=== PATIENT | female | born 1980 | race Caucasian/White ===

== ENCOUNTER 2020-06-23 15:44 | Inpatient (IN) | payer OTHER ==
[2020-06-23 16:28] VITALS: BMI 23.3
--- NOTE | 2020-06-23 16:36 | BHS.RME ---
Substance Use & Tx History - Substance Use History Alcohol Substance amount: 4 pints vodka + 4 [place] Frequency of use: Daily Substance route: Oral Date of Last Use: 06/23/20 ( 10 a.m.) Cocaine- Powder Substance amount: 1-2 lines Frequency of use: Less than 3 times per week Substance route: Inhalation (ex: sniffing or snorting) Date of Last Use: 06/22/20 Nicotine Substance amount: 10-20 Frequency of use: Daily Substance route: Smoking Date of Last Use: 06/23/20 Physical/Psych/Mental Status - Behavior Eye Contact: Normal - Cooperativeness Cooperativeness: Cooperative - Thinking Thought Processes: Goal Directed Thought content: Future oriented - Physical Health Problems Is patient presently having any pain?: No Does patient presently have any injuries (include location): No Does patient currently have a fever: No Is patient : No CIWA Nausea/Vomitin-No Nausea/No Vomiting Muscle Tremors: 4-Moderate,w/Arms Extend Anxiety: 3 Agitation: 3 Paroxysmal Sweats: 3 (Increased facial moisture) Orientation: 0-Oriented Tacttile Disturbances: 1-Very Mild Itch/Numbness Auditory Disturbances: 0-None Visual Disturbances: 0-None Headache: 3-Moderate (Sharp/throbbing headache, frontal + anabaptism areas "6") CIWA-Ar Total Score: 17
--- NOTE | 2020-06-23 16:52 | HP ---
CIWA Score Nausea/Vomitin-No Nausea/No Vomiting Muscle Tremors: 4-Moderate,w/Arms Extend Anxiety: 3 Agitation: 3 Paroxysmal Sweats: 3 (Increased facial moisture) Orientation: 0-Oriented Tacttile Disturbances: 1-Very Mild Itch/Numbness Auditory Disturbances: 0-None Visual Disturbances: 0-None Headache: 3-Moderate (Sharp/throbbing headache, frontal + rastafarian areas "6") CIWA-Ar Total Score: 17 - Admission Criteria [facility]AS Guidelines: Admission for Medically Managed Detox: Requires at least one of the followin. CIWA greater than 12 2. Seizures within the past 24 hours 3. Delirium tremens within the past 24 hours 4. Hallucinations within the past 24 hours 5. Acute intervention needed for co occurring medical disorder 6. Acute intervention needed for co occurring psychiatric disorder 7. Severe withdrawal that cannot be handled at a lower level of care (continued vomiting, continued diarrhea, abnormal vital signs) requiring intravenous medication and/or fluids 8. Admission ROS [facility] Chief Complaint: alcohol withdrawls symptoms Allergies/Adverse Reactions: Allergies Allergy/AdvReac Type Severity Reaction Status Date / Time No Known Allergies Allergy Verified 06/23/20 16:57 History of Present Illness: Patient is a 40 y/o female with HTN who presents for alcohol detox. Patient started drinking at age 12. Patient drinks everyday, and drinks 4.5 pints vodka, 12-14 four lokos. Patient has had a seizure from stopping drinking. 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 She cannot sleep a whole night without needing alcohol. Patient has tried rehab in the past, patient has not been able to maintain sobriety. last drink was earlier today. Patient smokes crack on occasion. Recently smokes every day but not "a lot" everyday. First time smoking crack was 27, stopped for a long time but just started again a couple weeks ago. Smokes 1/2- 1 ppd cigarettes. Started smoking at age 16. Substance Use & Tx History - Substance Use History Alcohol Substance amount: 4 pints vodka + 4 [place] Frequency of use: Daily Substance route: Oral Date of Last Use: 06/23/20 ( 10 a.m.) Cocaine- Powder Substance amount: 1-2 lines Frequency of use: Less than 3 times per week Substance route: Inhalation (ex: sniffing or snorting) Date of Last Use: 06/22/20 Nicotine Substance amount: 10-20 Frequency of use: Daily Substance route: Smoking Date of Last Use: 06/23/20 PMHX: HTN PSGHX: left knee, 2 circlages, laproscopies, tubal ligation, oral surgery, R wrist Psych: PTSD, depression, anxiety, panic disorder Social: homeless in [place], no occupation legal: none Patient meets criteria for inpatient alcohol detox, CIWA elevated and bad social status. - Ebola screening Have you traveled outside of the country in the last 21 days: No Have you had contact with anyone from an Ebola affected area: No Have you been sick,other than usual withdrawal symptoms: No Do you have a fever: No - Review of Systems Constitutional: Other (denies: fever, chills) EENT: denies: Blurred Vision, Double Vision, Ear Discharge, Tinnitus Respiratory: denies: Cough, Shortness of Breath, Wheezing Cardiac: denies: Chest Pain, Chest Tightness GI: denies: Constipated, Diarrhea, Nausea, Vomiting : denies: Burning Musculoskeletal: denies: Back Pain, Muscle Pain Integumentary: denies: Bruising Neuro: denies: Headache, Numbness, Tingling, Dizziness Endocrine: denies: Unexplained Weight Loss Hematology: denies: Easy Bleeding Psychiatric: reports: Anxious. denies: Agitated, Depressed Patient History - Patient Medical History Hx Anemia: No Hx Asthma: No Hx Chronic Obstructive Pulmonary Disease (COPD): No Hx Cancer: No Hx Cardiac Disorders: No Hx Congestive Heart Failure: No Hx Hypertension: Yes Hx Hypercholesterolemia: No Hx Pacemaker: No HX Cerebrovascular Accident: No Hx Seizures: No Hx Dementia: No Hx Diabetes: No Hx Gastrointestinal Disorders: No Hx Liver Disease: No Hx Genitourinary Disorders: No Hx Sexually Transmitted Disorders: No Hx Renal Disease (ESRD): No Hx Thyroid Disease: No Hx Human Immunodeficiency Virus (HIV): No Hx Hepatitis C: No Hx Depression: No Hx Suicide Attempt: No Hx Bipolar Disorder: No Hx Schizophrenia: No - Patient Surgical History Past Surgical History: Yes Hx Neurologic Surgery: No Hx Cataract Extraction: No Hx Cardiac Surgery: No Hx Breast Surgery: No Hx Breast Biopsy: No Hx Abdominal Surgery: Yes Hx Appendectomy: No Hx Cholecystectomy: No Hx Genitourinary Surgery: No Hx Section: No Hx Orthopedic Surgery: Yes Hx Hysterectomy: No Anesthesia Reaction: No - PPD History Previous Implant?: Yes Documented Results: Negative w/o proof - Reproductive History Patient is a Female of Child Bearing Age (11 -55 yrs old): Yes Last Menstrual Period: 06/23/20 - Smoking Cessation Smoking history: Current every day smoker Aproximately how many cigarettes per day: 20 Initiated information on smoking cessation: Yes 'Breaking Loose' booklet given: 06/23/20 - Substance & Tx. History Hx Alcohol Use: Yes Hx Substance Use: Yes (crack) Admission Physical Exam [facility] - Vital Signs Vital Signs: Vital Signs - 24 hr 06/23/20 06/23/20 16:27 16:30 Temperature 97.6 F 97.6 F Pulse Rate 78 78 Respiratory 18 18 Rate Blood Pressure 159/106 H 159/106 H - Physical General Appearance: Yes: No Apparent Distress, Appropriately Dressed HEENTM: Yes: Hearing grossly Normal Respiratory: Yes: Normal Breath Sounds, No Respiratory Distress, No Accessory Muscle Use Neck: Yes: Within Normal Limits Cardiology: Yes: Regular Rhythm, Regular Rate, S1, S2 Abdominal: Yes: Non Tender, Flat, Soft Back: Yes: Within Normal Limits, Normal Inspection Musculoskeletal: Yes: full range of Motion, Gait Steady Extremities: Yes: Normal Range of Motion. No: Pedal Edema Neurological: Yes: Fully Oriented, Normal Response Integumentary: Yes: Dry - Diagnostic (1) Alcohol dependence with withdrawal Current Visit: Yes Status: Acute (2) Nicotine addiction Current Visit: Yes Status: Acute (3) Hypertension Current Visit: Yes Status: Acute Cleared for Admission [facility] - Detox or Rehab [facility] Level of Care: Medically Managed Detox Regimen/Protocol: Librium Claeared for Rehab Admission: No Breathalyzer - Breathalyzer Breathalyzer: 0 Vital Signs - Vital Signs Vital signs refused: No Temperature: 97.6 F Temperature source: Oral Pulse Rate: 78 Respiratory Rate: 18 Blood Pressure: 159/106 - Height Height: 5 ft 4 in - Weight Weight: 61.689 kg - BMI Body Mass Index (BMI): 23.3 Urine Drug Screen - Test Device Lot number: [id number] Expiration date: 01/15/22 - Control Is test valid?: Yes - Results Drug screen NEGATIVE: No Urine drug screen results: SOLANGE-Cocaine Inpatient Rehab Admission - Rehab Decision to Admit Inpatient rehab admission?: No
[2020-06-23] MEDS ORDERED: BISMUTH SUBSALICYLATE 524 MG/30 ML UD PO PRN (16:58)
[2020-06-23] MEDS ORDERED: MAGNESIUM CITRATE 300 ML BOTTLE PO PRN (16:58)
[2020-06-23] MEDS ORDERED: NICOTINE POLACRILEX 2 MG GUM BUC PRN (16:58)
[2020-06-23] MEDS ORDERED: MAGNESIUM HYDROX 2400MG/30ML ORAL SUSPENSION 30 ML CUP PO PRN (16:58)
[2020-06-23] MEDS ORDERED: IBUPROFEN 400 MG TABLET (FP) PO PRN (16:58)
[2020-06-23] MEDS ORDERED: MENTHOL/PHENOL 1 EACH UD MM PRN (16:58)
[2020-06-23] MEDS ORDERED: ACETAMINOPHEN 325 MG TABLET (FP) PO PRN ×2 (16:58)
[2020-06-23] MEDS ORDERED: ONDANSETRON *ODT* 4 MG TABLET SL PRN (16:58)
[2020-06-23] MEDS ORDERED: MAG HYDROX/AL HYDROX/SIMETH 30 ML UNIT-DOSE CUP PO PRN (16:58)
[2020-06-23] MEDS ORDERED: chlordiazePOXIDE HCL 25 MG CAPSULE PO PRN (16:58)
[2020-06-23] MEDS: PRENATAL VITAMINS W/ FOLIC ACID TABLET (FP) PO SCH (18:35)
[2020-06-23] MEDS: hydrOXYzine PAMOATE 25 MG CAPSULE (FP) PO SCH ×2 (18:36→22:39)
[2020-06-23] MEDS: LISINOPRIL 10 MG TABLET (FP) PO SCH (18:36)
[2020-06-23] MEDS: amLODIPine BESYLATE 5 MG TABLET (FP) PO SCH (18:36)
[2020-06-23] MEDS: HYDROCHLOROTHIAZIDE 25 MG TABLET (FP) PO SCH (18:36)
[2020-06-23] MEDS: chlordiazePOXIDE HCL 25 MG CAPSULE PO SCH ×2 (18:36→22:38)
[2020-06-23] MEDS: NICOTINE 21 MG/24 HOURS TOPICAL PATCH TD SCH (18:40)
[2020-06-23] MEDS: MELATONIN 5 MG TABLETS PO SCH (22:38)
[2020-06-23] MEDS: THIAMINE HCL 100 MG TABLET (FP) PO SCH (22:39)
[2020-06-24] MEDS: chlordiazePOXIDE HCL 25 MG CAPSULE PO SCH ×4 (05:51→22:21)
[2020-06-24] MEDS: hydrOXYzine PAMOATE 25 MG CAPSULE (FP) PO SCH ×5 (05:51→22:21)
--- NOTE | 2020-06-24 09:24 | PN ---
S CIWA - CIWA Score Nausea/Vomitin-Mild Nausea/No Vomiting Muscle Tremors: 3 Anxiety: 3 Agitation: 1-Slight > Activity Paroxysmal Sweats: 2 Orientation: 0-Oriented Tacttile Disturbances: 0-None Auditory Disturbances: 0-None Visual Disturbances: 2-Mild Sensitivity Headache: 0-None Present CIWA-Ar Total Score: 12 BHS Progress Note (SOAP) Subjective: 40 years old female was admitted on 06/23/20 for alcohol withdrawal sx ma nagement treating with librium detox regiment feels tired resting in bed bmi 23.2 continue ensure supplement limited conversation with staff prefers to sleep longer in bed Objective: 06/24/20 09:27 Vital Signs - 24 hr 06/23/20 06/23/20 06/23/20 16:27 16:30 17:20 Temperature 97.6 F 97.6 F 97.6 F Pulse Rate 78 78 78 Respiratory 18 18 18 Rate Blood Pressure 159/106 H 159/106 H 159/106 H O2 Sat by Pulse Oximetry (%) 06/23/20 06/23/20 06/23/20 17:21 18:00 20:56 Temperature 97.6 F 97.3 F L 97.1 F L Pulse Rate 78 79 72 Respiratory 18 18 16 Rate Blood Pressure 159/106 H 188/113 H 157/103 H O2 Sat by Pulse 100 99 Oximetry (%) 06/24/20 06:12 Temperature 96.9 F L Pulse Rate 77 Respiratory 16 Rate Blood Pressure 130/89 O2 Sat by Pulse 97 Oximetry (%) medical history of hypertension treated with amlodipin lisinopril hctz current bp within acceptable range clonidine 0.1 mg po prn Assessment: 06/24/20 09:28 alcohol withdrawal hypertension Plan: librium regiment lisinopril amlodipine hctz prn clonidine
--- NOTE | 2020-06-24 09:29 | EKG ---
Test Reason : Blood Pressure : / mmHG Vent. Rate : 074 BPM Atrial Rate : 074 BPM P-R Int : 136 ms QRS Dur : 086 ms QT Int : 424 ms P-R-T Axes : 042 058 047 degrees QTc Int : 470 ms NORMAL SINUS RHYTHM NORMAL ECG NO PREVIOUS ECGS AVAILABLE Confirmed by MD NAVIN, LEILA ([id number]) on 06/24/2020 9:28:57 AM Referred By: Confirmed By:LEILA HOLDEN MD
[2020-06-24] MEDS ORDERED: cloNIDine HCL 0.1 MG TABLET PO PRN (10:00)
[2020-06-24] MEDS: HYDROCHLOROTHIAZIDE 25 MG TABLET (FP) PO SCH (10:15)
[2020-06-24] MEDS: amLODIPine BESYLATE 5 MG TABLET (FP) PO SCH (10:15)
[2020-06-24] MEDS: LISINOPRIL 10 MG TABLET (FP) PO SCH (10:15)
[2020-06-24] MEDS: PRENATAL VITAMINS W/ FOLIC ACID TABLET (FP) PO SCH (10:15)
[2020-06-24] MEDS: NICOTINE 21 MG/24 HOURS TOPICAL PATCH TD SCH (10:19)
[2020-06-24 10:34] LABS: ALBUMIN 3.3 g/dl (3.4-5.0); BILIRUBIN,TOTAL 0.9 mg/dL (0.2-1); BLOOD UREA NITROGEN 9.4 mg/dL (7-18); CREATININE 0.7 mg/dL (0.55-1.3); POTASSIUM 3.4 mmol/L (3.5-5.1); TOT PROT 6.8 g/dl (6.4-8.2)
[2020-06-24 10:39] LABS: HEMATOCRIT 42.8 % (32.4-45.2); HEMOGLOBIN 14.4 GM/dL (10.7-15.3); MCH 34.2 pg (25.7-33.7); MCHC 33.7 g/dl (32.0-36.0); MEAN CELL VOLUME 101.7 fl (80-96); MEAN PLT VOLUME 8.3 fl (7.5-11.1); PLATELET COUNT 255 K/MM3 (134-434); RBC 4.21 M/mm3 (3.60-5.2); RDW 13.1 % (11.6-15.6); WHITE BLOOD COUNT 6.7 K/mm3 (4.0-10.0)
--- NOTE | 2020-06-24 16:15 | CONSULT ---
[facility] Psychiatric Consult - Data Date of interview: 06/24/20 Admission source: [facility] Identifying data: First visit to [facility] and admission to [address] [place] [address] for this 40 y/o female self-referred for detoxification treatment. PAULETTE issues : alcohol, nicotine, crack/cocaine occasionally). Patient is , a mother of two, homeless, unemployed and supported on food stamps. Substance Abuse History: Discussed with the patient. PAULETTE profile as follows : Alcohol. Substance amount: 4 pints vodka + 4 [place]. Frequency of use: Daily. Substance route: Oral. Date of Last Use: 06/23/20 ( 10 a.m.). Cocaine- Powder. Substance amount: 1-2 lines. Frequency of use: Less than 3 times per week. Substance route: Inhalation (ex: sniffing or snorting). Date of Last Use: 06/22/20. Nicotine. Substance amount: 10-20. Frequency of use: Daily. Substance route: Smoking. Date of Last Use: 06/23/20. Smoking history: Current every day smoker. Aproximately how many cigarettes per day: 20. Initiated information on smoking cessation: Yes. 'Breaking Loose' booklet given: 06/23/20. - Substance & Tx. History. Hx Alcohol Use: Yes. Hx Substance Use: Yes (crack) Medical History: Medical history is remarkable for two circlages, abdominal surgery (laparoscopy), tubal ligation, oral surgery and orthopedic issues (left knee + right wrist). No known allergies. Psychiatric History: Patient denies history of psychiatric hospitalizations. She has, however, been treated as an outpatient, with sertraline + clonazepam. Ms Wagner states that she got diagnosed in the past with FELIPE, MDD and PTSD. She reports total non-adherence to medications and OPD care (for months). Patient denies history of suicide attempts. Physical/Sexual Abuse/Trauma History: Not discussed. Patient declines. Additional Comment: Urine drug screen results: SOLANGE-Cocaine. Noted. Mental Status Exam - Mental Status Exam Alert and Oriented to: Time, Place, Person Cognitive Function: Good Patient Appearance: Unkempt, Disheveled Mood: Withdrawn Affect: Mood Congruent, Constricted Patient Behavior: Fatigued, Appropriate, Cooperative Speech Pattern: Clear, Appropriate Voice Loudness: Normal Thought Process: Intact, Goal Oriented Thought Disorder: Not Present Hallucinations: Denies Suicidal Ideation: Denies Homicidal Ideation: Denies Insight/Judgement: Poor Sleep: Fair (with melatonin) Gait/Station: Normal Psychiatric Findings - Problem List ([place] 1, 2,3) (1) Alcohol dependence with withdrawal Current Visit: Yes Status: Acute (2) Cocaine use disorder Current Visit: Yes Status: Chronic (3) Nicotine dependence Current Visit: Yes Status: Chronic (4) Substance induced mood disorder Current Visit: Yes Status: Chronic (5) Insomnia Current Visit: Yes Status: Chronic - Initial Treatment Plan Initial Treatment Plan: Psychoeducation. Sleep hygiene. Detoxification in progress. Patient has requested to resume treatment with gabapentin (history of good response) to address anxiety. Gabapentin 100 mg po tid. Ordered. Side effects/benefits discussed. Ms Wagner grants consent (verbal) to MD. Alvarado.
[2020-06-24] MEDS: THIAMINE HCL 100 MG TABLET (FP) PO SCH (22:21)
[2020-06-24] MEDS: MELATONIN 5 MG TABLETS PO SCH (22:21)
[2020-06-24] MEDS: GABAPENTIN 100 MG CAPSULE PO SCH (22:21)
[2020-06-25] MEDS: hydrOXYzine PAMOATE 25 MG CAPSULE (FP) PO SCH (05:30)
[2020-06-25] MEDS: chlordiazePOXIDE HCL 25 MG CAPSULE PO SCH ×4 (06:30→22:15)
[2020-06-25] MEDS: GABAPENTIN 100 MG CAPSULE PO SCH ×3 (06:30→22:15)
--- NOTE | 2020-06-25 10:03 | PN ---
S CIWA - CIWA Score Nausea/Vomitin-Mild Nausea/No Vomiting Muscle Tremors: 2 Anxiety: 3 Agitation: 1-Slight > Activity Paroxysmal Sweats: No Perspiration Orientation: 0-Oriented Tacttile Disturbances: 0-None Auditory Disturbances: 0-None Visual Disturbances: 1-Very Mild Sensitivity Headache: 2-Mild CIWA-Ar Total Score: 10 S Progress Note (SOAP) Subjective: 40 years old female was admitted on 06/23/20 for alcohol withdrawal sx management treating with librium detox regiment seen by psychiatrist lilibeth osorio feels anxious from alcohol withdrawal increase vistaril to 50mg po q6h [id number] repeat ekg increase melatonin to 10mg for insomnia increase motrin to 600mg po q8h prn for general body aches Objective: 06/25/20 10:11 Vital Signs - 24 hr 06/24/20 06/24/20 06/24/20 12:25 17:10 20:46 Temperature 97 F L 96.9 F L 97.6 F Pulse Rate 98 H 76 78 Respiratory 20 20 20 Rate Blood Pressure 119/87 112/83 116/78 O2 Sat by Pulse 98 98 100 Oximetry (%) 06/25/20 06/25/20 06:38 09:05 Temperature 96.8 F L 97.7 F Pulse Rate 65 77 Respiratory 18 18 Rate Blood Pressure 121/86 99/68 O2 Sat by Pulse 99 Oximetry (%) low bp reduce lisinopril to 20mg po daily 06/25/20 10:11 Laboratory Tests 06/23/20 06/23/20 06/24/20 16:28 17:30 08:00 WBC RBC Hgb Hct MCV MCH MCHC RDW Plt Count MPV Sodium Potassium Chloride Carbon Dioxide Anion Gap BUN Creatinine Est GFR (CKD-EPI)AfAm Est GFR (CKD-EPI)NonAf Random Glucose Calcium Total Bilirubin AST ALT Alkaline Phosphatase Total Protein Albumin POC Urine HCG, Qual Negative Syphilis Serology Non-reactive COVID-19 (MYKE) Not detected 06/24/20 06/24/20 08:00 08:00 WBC 6.7 RBC 4.21 Hgb 14.4 Hct 42.8 MCV 101.7 H MCH 34.2 H MCHC 33.7 RDW 13.1 Plt Count 255 MPV 8.3 Sodium 137 Potassium 3.4 L Chloride 100 Carbon Dioxide 32 Anion Gap 5 L BUN 9.4 Creatinine 0.7 Est GFR (CKD-EPI)AfAm 125.61 Est GFR (CKD-EPI)NonAf 108.38 Random Glucose 90 Calcium 9.0 Total Bilirubin 0.9 AST 19 ALT 19 Alkaline Phosphatase 70 Total Protein 6.8 Albumin 3.3 L POC Urine HCG, Qual Syphilis Serology COVID-19 (MYKE) K+ 3.4 K+ supplement 20meq bid x 4 dosage Assessment: 06/25/20 10:14 alcohol withdrawal Plan: librium regiment
[2020-06-25] MEDS ORDERED: IBUPROFEN 600 MG TABLET (FP) PO ONE (10:05)
[2020-06-25] MEDS: HYDROCHLOROTHIAZIDE 25 MG TABLET (FP) PO SCH (10:13)
[2020-06-25] MEDS: amLODIPine BESYLATE 5 MG TABLET (FP) PO SCH (10:13)
[2020-06-25] MEDS: LISINOPRIL 10 MG TABLET (FP) PO SCH (10:13)
[2020-06-25] MEDS: NICOTINE 21 MG/24 HOURS TOPICAL PATCH TD SCH (10:14)
[2020-06-25] MEDS: PRENATAL VITAMINS W/ FOLIC ACID TABLET (FP) PO SCH (10:14)
[2020-06-25] MEDS: hydrOXYzine PAMOATE 50 MG CAPSULE (FP) PO SCH ×3 (10:18→22:15)
[2020-06-25] MEDS: LISINOPRIL 20 MG TABLET (FP) PO SCH (13:09)
[2020-06-25] MEDS: POTASSIUM CHLORIDE ORAL LIQUID 20 MEQ/15 ML PO SCH ×2 (13:12→22:15)
[2020-06-25] MEDS: METHOCARBAMOL 500 MG TABLET PO PRN ×2 (17:46→23:00)
[2020-06-25] MEDS: THIAMINE HCL 100 MG TABLET (FP) PO SCH (22:15)
[2020-06-25] MEDS: MELATONIN 5 MG TABLETS PO SCH (22:16)
[2020-06-25] MEDS: IBUPROFEN 600 MG TABLET (FP) PO PRN (22:18)
[2020-06-26] MEDS ORDERED: chlordiazePOXIDE HCL 10 MG CAPSULE PO PRN
[2020-06-26] MEDS: hydrOXYzine PAMOATE 50 MG CAPSULE (FP) PO SCH ×4 (05:51→23:03)
[2020-06-26] MEDS: chlordiazePOXIDE HCL 10 MG CAPSULE PO SCH ×4 (05:51→22:31)
[2020-06-26] MEDS: METHOCARBAMOL 500 MG TABLET PO PRN ×4 (05:52→23:03)
[2020-06-26] MEDS: GABAPENTIN 100 MG CAPSULE PO SCH ×3 (05:55→22:31)
[2020-06-26] MEDS: amLODIPine BESYLATE 5 MG TABLET (FP) PO SCH (10:06)
[2020-06-26] MEDS: LISINOPRIL 20 MG TABLET (FP) PO SCH (10:06)
[2020-06-26] MEDS: LISINOPRIL 10 MG TABLET (FP) PO SCH (10:06)
[2020-06-26] MEDS: POTASSIUM CHLORIDE ORAL LIQUID 20 MEQ/15 ML PO SCH ×2 (10:06→22:31)
[2020-06-26] MEDS: NICOTINE 21 MG/24 HOURS TOPICAL PATCH TD SCH (10:07)
[2020-06-26] MEDS: PRENATAL VITAMINS W/ FOLIC ACID TABLET (FP) PO SCH (10:07)
[2020-06-26] MEDS: IBUPROFEN 600 MG TABLET (FP) PO PRN (10:09)
[2020-06-26] MEDS: HYDROCHLOROTHIAZIDE 25 MG TABLET (FP) PO SCH (10:11)
--- NOTE | 2020-06-26 12:00 | PN ---
S CIWA - CIWA Score Nausea/Vomitin-Mild Nausea/No Vomiting Muscle Tremors: 2 Anxiety: 2 Agitation: 2 Paroxysmal Sweats: No Perspiration Orientation: 0-Oriented Tacttile Disturbances: 0-None Auditory Disturbances: 0-None Visual Disturbances: 0-None Headache: 1-Very Mild CIWA-Ar Total Score: 8 BHS Progress Note (SOAP) Subjective: alert,irritable,anxious,interrupted sleep,tremor,aching pain Objective: 06/26/20 17:25 Vital Signs Temperature 97.7 F 06/26/20 12:48 Pulse Rate 67 06/26/20 12:48 Respiratory Rate 18 06/26/20 12:48 Blood Pressure 117/77 06/26/20 12:48 O2 Sat by Pulse Oximetry (%) 98 06/26/20 12:48 Assessment: 06/26/20 17:25 withdrawal symptom Plan: continue detox librium regimen
--- NOTE | 2020-06-26 16:32 | EKG ---
Test Reason : Blood Pressure : / mmHG Vent. Rate : 060 BPM Atrial Rate : 060 BPM P-R Int : 164 ms QRS Dur : 090 ms QT Int : 472 ms P-R-T Axes : 050 067 059 degrees QTc Int : 472 ms NORMAL SINUS RHYTHM NORMAL ECG WHEN COMPARED WITH ECG OF 23-JUN-2020 16:44, NO SIGNIFICANT CHANGE WAS FOUND Confirmed by RAZIA IZAGUIRRE MD ([id number]) on 06/26/2020 4:31:29 PM Referred By: ULYSSES EDGE Confirmed By:RAZIA IZAGUIRRE MD
[2020-06-26] MEDS: THIAMINE HCL 100 MG TABLET (FP) PO SCH (22:31)
[2020-06-26] MEDS: MELATONIN 5 MG TABLETS PO SCH (22:32)
[2020-06-27] MEDS: hydrOXYzine PAMOATE 50 MG CAPSULE (FP) PO SCH ×3 (06:47→17:57)
[2020-06-27] MEDS: chlordiazePOXIDE HCL 10 MG CAPSULE PO SCH ×2 (06:47→17:57)
[2020-06-27] MEDS: GABAPENTIN 100 MG CAPSULE PO SCH ×2 (06:47→14:19)
[2020-06-27] MEDS: METHOCARBAMOL 500 MG TABLET PO PRN (06:49)
[2020-06-27] MEDS: IBUPROFEN 600 MG TABLET (FP) PO PRN (07:53)
--- NOTE | 2020-06-27 09:37 | PN ---
S CIWA - CIWA Score Nausea/Vomitin-No Nausea/No Vomiting Muscle Tremors: None Anxiety: 2 Agitation: 0-Normal Activity Paroxysmal Sweats: No Perspiration Orientation: 0-Oriented Tacttile Disturbances: 0-None Auditory Disturbances: 0-None Visual Disturbances: 0-None Headache: 1-Very Mild CIWA-Ar Total Score: 3 BHS Progress Note (SOAP) Subjective: Patient was examined in the room. Patient had complaints of anxiety and headache otherwise was feeling well. Patient had not ate breakfast and was lying in bed. Objective: 06/27/20 09:35 PE: General: No acute distress, alert and awake MSK: gait normal, pelvis stable, normal range of motion Skin: No lesions or abrasions skin color normal. MS: responds appropriately to questions, oriented x3 Last Vital Signs Temp Pulse Resp BP Pulse Ox 97.3 F L 66 18 101/67 99 06/27/20 08:31 06/27/20 08:31 06/27/20 08:31 06/27/20 08:31 06/27/20 08:31 CBC,CMP WBC 6.7 K/mm3 (4.0-10.0) 06/24/20 08:00 RBC 4.21 M/mm3 (3.60-5.2) 06/24/20 08:00 Hgb 14.4 GM/dL (10.7-15.3) 06/24/20 08:00 Hct 42.8 % (32.4-45.2) 06/24/20 08:00 MCV 101.7 fl (80-96) H 06/24/20 08:00 MCH 34.2 pg (25.7-33.7) H 06/24/20 08:00 MCHC 33.7 g/dl (32.0-36.0) 06/24/20 08:00 RDW 13.1 % (11.6-15.6) 06/24/20 08:00 Plt Count 255 K/MM3 (134-434) 06/24/20 08:00 MPV 8.3 fl (7.5-11.1) 06/24/20 08:00 Sodium 137 mmol/L (136-145) 06/24/20 08:00 Potassium 3.4 mmol/L (3.5-5.1) L 06/24/20 08:00 Chloride 100 mmol/L (98-107) 06/24/20 08:00 Carbon Dioxide 32 mmol/L (21-32) 06/24/20 08:00 Anion Gap 5 MMOL/L (8-16) L 06/24/20 08:00 BUN 9.4 mg/dL (7-18) 06/24/20 08:00 Creatinine 0.7 mg/dL (0.55-1.3) 06/24/20 08:00 Est GFR (CKD-EPI)AfAm 125.61 06/24/20 08:00 Est GFR (CKD-EPI)NonAf 108.38 06/24/20 08:00 Random Glucose 90 mg/dL (74-106) 06/24/20 08:00 Calcium 9.0 mg/dL (8.5-10.1) 06/24/20 08:00 Total Bilirubin 0.9 mg/dL (0.2-1) 06/24/20 08:00 AST 19 U/L (15-37) 06/24/20 08:00 ALT 19 U/L (13-61) 06/24/20 08:00 Alkaline Phosphatase 70 U/L (45-117) 06/24/20 08:00 Total Protein 6.8 g/dl (6.4-8.2) 06/24/20 08:00 Albumin 3.3 g/dl (3.4-5.0) L 06/24/20 08:00 Current Medications Generic Name Dose Route Start Last Admin Trade Name Freq PRN Reason Stop Dose Admin Acetaminophen 650 mg 06/23/20 16:58 Tylenol - PO Q6H PRN PAIN LEVEL 4 - 6 Acetaminophen 650 mg 06/23/20 16:58 Tylenol - PO Q6H PRN FEVER Al Hydroxide/Mg Hydroxide 30 ml 06/23/20 16:58 Mylanta Oral Suspension - PO Q6H PRN DYSPEPSIA Amlodipine Besylate 5 mg 06/23/20 17:00 06/26/20 10:06 Norvasc - PO 5 mg DAILY PANTERA Administration Bismuth Subsalicylate 524 mg 06/23/20 16:58 Pepto-Bismol - PO Q1H PRN DIARRHEA Chlordiazepoxide HCl 10 mg 06/27/20 05:00 06/27/20 06:47 Librium - PO 06/27/20 17:01 10 mg Q12H PANTERA Administration Chlordiazepoxide HCl 10 mg 06/28/20 05:00 Librium - PO 06/28/20 05:01 ONCE@0500 ONE Clonidine 0.1 mg 06/24/20 10:00 Catapres - PO Q6H PRN HYPERTENSION Eucalyptus/Menthol/Phenol/Sorbitol 1 each 06/23/20 16:58 Cepastat Lozenge - MM 06/29/20 16:59 Q4H PRN SORE THROAT Gabapentin 100 mg 06/24/20 22:00 06/27/20 06:47 Neurontin - PO 100 mg TID PANTERA Administration Hydrochlorothiazide 25 mg 06/23/20 17:00 06/26/20 10:11 Hctz - PO 25 mg DAILY PANTERA Administration Hydroxyzine Pamoate 50 mg 06/26/20 18:00 06/27/20 06:47 Vistaril - PO 06/27/20 23:59 50 mg Q6H PANTERA Administration Ibuprofen 600 mg 06/25/20 14:00 06/27/20 07:53 Motrin - PO 600 mg Q8H PRN Administration PAIN LEVEL 4 - 6 Lisinopril 30 mg 06/23/20 17:00 06/26/20 10:06 Prinivil PO 30 mg DAILY PANTERA Administration Lisinopril 20 mg 06/25/20 10:15 06/26/20 10:06 Prinivil PO 20 mg DAILY PANTERA Administration Magnesium Citrate 300 ml 06/23/20 16:58 Citroma - PO Q48H PRN CONSTIPATION Magnesium Hydroxide 30 ml 06/23/20 16:58 06/26/20 23:04 Milk Of Magnesia - PO 30 ml PRN PRN Administration CONSTIPATION Melatonin 10 mg 06/25/20 22:00 06/26/20 22:32 Melatonin PO 10 mg HS PANTERA Administration Methocarbamol 500 mg 06/23/20 16:58 06/27/20 06:49 Robaxin - PO 06/29/20 16:59 500 mg Q6H PRN Administration MUSCLE SPASMS Nicotine 21 mg 06/23/20 17:00 06/26/20 10:07 Nicoderm Patch - TD 21 mg DAILY PANTERA Administration Nicotine Polacrilex 2 mg 06/23/20 16:58 Nicorette Gum - BUC Q2H PRN NICOTINE REPLACEMENT RX Ondansetron HCl 4 mg 06/23/20 16:58 Zofran Odt - SL Q8H PRN Nausea/Vomiting Multivit/Folic Acid/Iron 1 tab 06/23/20 17:00 06/26/20 10:07 Vitamins (Sjr) - PO 1 tab DAILY PANTERA Administration Thiamine HCl 100 mg 06/23/20 22:00 06/26/20 22:31 Vitamin B1 - PO 100 mg HS PANTERA Administration Discontinued Medications Generic Name Dose Route Start Last Admin Trade Name Freq PRN Reason Stop Dose Admin Chlordiazepoxide HCl 50 mg 06/23/20 17:00 06/24/20 22:21 Librium - PO 06/24/20 23:01 50 mg [id number] PANTERA Administration Chlordiazepoxide HCl 25 mg 06/25/20 05:00 06/25/20 22:15 Librium - PO 06/25/20 23:01 25 mg [id number] PANTERA Administration Chlordiazepoxide HCl 25 mg 06/23/20 16:58 Librium - PO 06/25/20 23:59 Q4H PRN WITHDRAWAL(CONT SUBST) Chlordiazepoxide HCl 10 mg 06/26/20 05:00 06/26/20 22:31 Librium - PO 06/26/20 23:01 10 mg [id number] PANTERA Administration Chlordiazepoxide HCl 10 mg 06/26/20 00:00 Librium - PO 06/27/20 00:00 Q4H PRN WITHDRAWAL(CONT SUBST) Hydroxyzine Pamoate 25 mg 06/23/20 18:00 06/25/20 05:30 Vistaril - PO 06/29/20 16:58 Not Given Q4HWA PANTERA Hydroxyzine Pamoate 50 mg 06/25/20 10:00 06/26/20 10:06 Vistaril - PO 06/27/20 23:59 50 mg Q6H PANTERA Administration Ibuprofen 400 mg 06/23/20 16:58 Motrin - PO Q6H PRN PAIN LEVEL 1 - 3 Ibuprofen 600 mg 06/25/20 10:05 06/25/20 12:39 Motrin - PO 06/25/20 10:06 Not Given ONCE ONE Melatonin 5 mg 06/23/20 22:00 06/24/20 22:21 Melatonin PO 5 mg HS PANTERA Administration Potassium Chloride 20 meq 09/16/20 10:45 06/26/20 22:31 Potassium Chloride Oral Liquid PO 06/26/20 22:01 20 meq BID PANTERA Administration Tuberculin PPD 5 units 06/23/20 16:58 06/23/20 18:42 Tubersol ([facility] Only) 5ml Vial ID 06/23/20 16:59 0.1 ml ONCE ONE Administration Assessment: 06/27/20 09:35 Assessment: Patient is in detox due to alcohol currently on libirum protocol day 4. Plan: Plan: Continue libirum protocol
[2020-06-27] MEDS: amLODIPine BESYLATE 5 MG TABLET (FP) PO SCH (11:01)
[2020-06-27] MEDS: PRENATAL VITAMINS W/ FOLIC ACID TABLET (FP) PO SCH (11:01)
[2020-06-27] MEDS: HYDROCHLOROTHIAZIDE 25 MG TABLET (FP) PO SCH (11:01)
[2020-06-27] MEDS: LISINOPRIL 10 MG TABLET (FP) PO SCH (11:01)
[2020-06-27] MEDS: NICOTINE 21 MG/24 HOURS TOPICAL PATCH TD SCH (11:02)
[2020-06-27] MEDS: LISINOPRIL 20 MG TABLET (FP) PO SCH (11:02)
--- NOTE | 2020-06-27 13:32 | DS ---
[facility] Detox Discharge Summary Admission Date: 06/23/20 Discharge Date: 06/27/20 - History Present History: Alcohol Dependence Additional Comments: Patient is a 40 y/o female with HTN who presentd 06/23 for alcohol detox. Substance use hx: Patient started drinking at age 12. Patient drinks everyday, and drinks 4.5 pints vodka, 12-14 four lokos. Patient has had a seizure from stopping drinking. Patient has backed out from drinking, patient reports needing an eye cigarette maker. She cannot sleep a whole night without needing alcohol. Patient has tried rehab in the past, patient has not been able to maintain sobriety. last drink was earlier today. Patient smokes crack on occasion. Recently smokes every day but not "a lot" everyday. First time smoking crack was 27, stopped for a long time but just started again a couple weeks ago. Smokes 1/2- 1 ppd cigarettes. Started smoking at age 16. - Physical Exam Results Vital Signs: Vital Signs Temperature 97.3 F L 06/27/20 08:31 Pulse Rate 66 06/27/20 08:31 Respiratory Rate 18 06/27/20 08:31 Blood Pressure 101/67 06/27/20 08:31 O2 Sat by Pulse Oximetry (%) 99 06/27/20 08:31 Pertinent Admission Physical Exam Findings: PE Gnl: WDWN, in no distress MS: nl mentation Motor: moves all limbs well Gait: steady Laboratory Tests 06/23/20 06/23/20 06/24/20 16:28 17:30 08:00 WBC RBC Hgb Hct MCV MCH MCHC RDW Plt Count MPV Sodium Potassium Chloride Carbon Dioxide Anion Gap BUN Creatinine Est GFR (CKD-EPI)AfAm Est GFR (CKD-EPI)NonAf Random Glucose Calcium Total Bilirubin AST ALT Alkaline Phosphatase Total Protein Albumin POC Urine HCG, Qual Negative Syphilis Serology Non-reactive COVID-19 (MYKE) Not detected 06/24/20 06/24/20 08:00 08:00 WBC 6.7 RBC 4.21 Hgb 14.4 Hct 42.8 MCV 101.7 H MCH 34.2 H MCHC 33.7 RDW 13.1 Plt Count 255 MPV 8.3 Sodium 137 Potassium 3.4 L Chloride 100 Carbon Dioxide 32 Anion Gap 5 L BUN 9.4 Creatinine 0.7 Est GFR (CKD-EPI)AfAm 125.61 Est GFR (CKD-EPI)NonAf 108.38 Random Glucose 90 Calcium 9.0 Total Bilirubin 0.9 AST 19 ALT 19 Alkaline Phosphatase 70 Total Protein 6.8 Albumin 3.3 L POC Urine HCG, Qual Syphilis Serology COVID-19 (MYKE) Home Medication List Medication Instructions Recorded Confirmed Type Amlodipine Besylate 5 mg PO DAILY 06/23/20 06/23/20 History Hydrochlorothiazide 25 mg PO DAILY 06/23/20 06/23/20 History Lisinopril 20 mg PO 06/25/20 History Active Medications Generic Name Dose Route Start Last Admin Trade Name Freq PRN Reason Stop Dose Admin Acetaminophen 650 mg 06/23/20 16:58 Tylenol - PO Q6H PRN PAIN LEVEL 4 - 6 Acetaminophen 650 mg 06/23/20 16:58 Tylenol - PO Q6H PRN FEVER Al Hydroxide/Mg Hydroxide 30 ml 06/23/20 16:58 Mylanta Oral Suspension - PO Q6H PRN DYSPEPSIA Amlodipine Besylate 5 mg 06/23/20 17:00 06/27/20 11:01 Norvasc - PO 5 mg DAILY PANTERA Administration Bismuth Subsalicylate 524 mg 06/23/20 16:58 Pepto-Bismol - PO Q1H PRN DIARRHEA Chlordiazepoxide HCl 10 mg 06/27/20 05:00 06/27/20 06:47 Librium - PO 06/27/20 17:01 10 mg Q12H PANTERA Administration Chlordiazepoxide HCl 10 mg 06/28/20 05:00 Librium - PO 06/28/20 05:01 ONCE@0500 ONE Clonidine 0.1 mg 06/24/20 10:00 Catapres - PO Q6H PRN HYPERTENSION Eucalyptus/Menthol/Phenol/Sorbitol 1 each 06/23/20 16:58 Cepastat Lozenge - MM 06/29/20 16:59 Q4H PRN SORE THROAT Gabapentin 100 mg 06/24/20 22:00 06/27/20 06:47 Neurontin - PO 100 mg TID PANTERA Administration Hydrochlorothiazide 25 mg 06/23/20 17:00 06/27/20 11:01 Hctz - PO 25 mg DAILY PANTERA Administration Hydroxyzine Pamoate 50 mg 06/26/20 18:00 06/27/20 11:01 Vistaril - PO 06/27/20 23:59 50 mg Q6H PANTERA Administration Ibuprofen 600 mg 06/25/20 14:00 06/27/20 07:53 Motrin - PO 600 mg Q8H PRN Administration PAIN LEVEL 4 - 6 Lisinopril 30 mg 06/23/20 17:00 06/27/20 11:01 Prinivil PO 30 mg DAILY PANTERA Administration Lisinopril 20 mg 06/25/20 10:15 06/27/20 11:02 Prinivil PO Not Given DAILY PANTERA Magnesium Citrate 300 ml 06/23/20 16:58 Citroma - PO Q48H PRN CONSTIPATION Magnesium Hydroxide 30 ml 06/23/20 16:58 06/26/20 23:04 Milk Of Magnesia - PO 30 ml PRN PRN Administration CONSTIPATION Melatonin 10 mg 06/25/20 22:00 06/26/20 22:32 Melatonin PO 10 mg HS PANTERA Administration Methocarbamol 500 mg 06/23/20 16:58 06/27/20 06:49 Robaxin - PO 06/29/20 16:59 500 mg Q6H PRN Administration MUSCLE SPASMS Nicotine 21 mg 06/23/20 17:00 06/27/20 11:02 Nicoderm Patch - TD 21 mg DAILY PANTERA Administration Nicotine Polacrilex 2 mg 06/23/20 16:58 Nicorette Gum - BUC Q2H PRN NICOTINE REPLACEMENT RX Ondansetron HCl 4 mg 06/23/20 16:58 Zofran Odt - SL Q8H PRN Nausea/Vomiting Multivit/Folic Acid/Iron 1 tab 06/23/20 17:00 06/27/20 11:01 Vitamins (Sjr) - PO 1 tab DAILY PANTERA Administration Thiamine HCl 100 mg 06/23/20 22:00 06/26/20 22:31 Vitamin B1 - PO 100 mg HS PANTERA Administration - Treatment Hospital Course: Detox Protocol Followed, Detoxed Safely, Responded well, Discharged Condition Good, Rehab Referral Accepted Patient has Accepted a Rehab Referral to: [facility] - Medication Discharge Medications: Ambulatory Orders Amlodipine Besylate 5 mg PO DAILY 06/23/20 Hydrochlorothiazide 25 mg PO DAILY 06/23/20 Lisinopril 20 mg PO 06/25/20 - AMA Did Patient Leave Against Medical Advice: No
[2020-06-27 17:26] VITALS: BP 102/62; PULSE 71; TEMP 97.3
[2020-06-28] MEDS ORDERED: chlordiazePOXIDE HCL 10 MG CAPSULE PO ONE (05:00)
== END 2020-06-27 18:52 | disposition other institution (70) | DRG 774 ==
LOC: YASAS 15:44 → Y3N 17:19
PROVIDERS: ADMIT Allergy & Immunology; ATTEND Allergy & Immunology
PROC: HZ2ZZZZ Detoxification Services for Substance Abuse Treatment (ICD-10-PCS; principal; 2020-06-23)
DX: F10.230 Alcohol dependence with withdrawal, uncomplicated (principal); F14.10 Cocaine abuse, uncomplicated; F17.210 Nicotine dependence, cigarettes, uncomplicated; F19.24 Other psychoactive substance dependence with psychoactive substance-induced mood disorder; F41.9 Anxiety disorder, unspecified; F32.9 Major depressive disorder, single episode, unspecified; F41.0 Panic disorder [episodic paroxysmal anxiety]; F43.10 Post-traumatic stress disorder, unspecified; I10 Essential (primary) hypertension; G47.00 Insomnia, unspecified; Z98.890 Other specified postprocedural states; Z98.51 Tubal ligation status; Z56.0 Unemployment, unspecified; Z59.0 Homelessness
CPT/HCPCS: 36415; 80053; 81025; 85027; 86780; 93005; 93010; U0003

== ENCOUNTER 2020-06-27 18:52 | Inpatient (IN) | payer OTHER ==
[2020-06-27] MEDS ORDERED: MAGNESIUM CITRATE 300 ML BOTTLE PO PRN (21:53)
[2020-06-27] MEDS ORDERED: P-EPHED 60MG/TRIPROLIDI 2.5MG TABLET PO PRN (21:53)
[2020-06-27] MEDS ORDERED: ACETAMINOPHEN 325 MG TABLET (FP) PO PRN (21:53)
[2020-06-27] MEDS ORDERED: MENTHOL/PHENOL 1 EACH UD MM PRN (21:53)
[2020-06-27] MEDS ORDERED: guaiFENesin 200 MG/10 ML 10 ML UNIT-DOSE CUPS PO PRN (21:53)
[2020-06-27] MEDS ORDERED: MAGNESIUM HYDROX 2400MG/30ML ORAL SUSPENSION 30 ML CUP PO PRN (21:53)
[2020-06-27] MEDS ORDERED: MAG HYDROX/AL HYDROX/SIMETH 30 ML UNIT-DOSE CUP PO PRN (21:53)
[2020-06-27] MEDS ORDERED: LOPERAMIDE HCL 2 MG CAPSULE PO PRN (21:53)
[2020-06-27] MEDS ORDERED: MELATONIN 5 MG TABLETS PO SCH (22:00)
[2020-06-27] MEDS ORDERED: THIAMINE HCL 100 MG TABLET (FP) PO SCH (22:00)
[2020-06-27] MEDS: hydrOXYzine PAMOATE 25 MG CAPSULE (FP) PO PRN (22:20)
[2020-06-27] MEDS: IBUPROFEN 400 MG TABLET (FP) PO PRN (22:20)
[2020-06-28] MEDS: hydrOXYzine PAMOATE 25 MG CAPSULE (FP) PO PRN ×2 (06:45→10:26)
[2020-06-28 07:27] VITALS: TEMP 97.1
[2020-06-28] MEDS ORDERED: amLODIPine BESYLATE 5 MG TABLET (FP) PO SCH (10:00)
[2020-06-28] MEDS ORDERED: NICOTINE 21 MG/24 HOURS TOPICAL PATCH TD SCH (10:00)
[2020-06-28] MEDS ORDERED: HYDROCHLOROTHIAZIDE 25 MG TABLET (FP) PO SCH (10:00)
[2020-06-28] MEDS ORDERED: LISINOPRIL 20 MG TABLET (FP) PO SCH (10:00)
[2020-06-28] MEDS ORDERED: PRENATAL VITAMINS W/ FOLIC ACID TABLET (FP) PO SCH (10:00)
[2020-06-28] MEDS: NICOTINE POLACRILEX 2 MG GUM BUC PRN ×2 (10:27→17:03)
[2020-06-28] MEDS ORDERED: METHOCARBAMOL 500 MG TABLET PO PRN (12:02)
[2020-06-28 15:15] VITALS: BP 92/56; PULSE 72
[2020-06-28] MEDS: IBUPROFEN 400 MG TABLET (FP) PO PRN (17:01)
--- NOTE | 2020-06-28 17:24 | DS ---
[facility] Rehab Discharge Summary - [facility] Rehab Discharge Summary Admission Date: 06/27/20 Discharge Date: 06/28/20 - History Present History: Alcohol dependence, Cocaine dependence Pertinent Past History: Cocaine use disorder, Nicotine use disorder. PMHX: HTN MHHx:PTSD, Depression, Anxiety, - Discharge Physical Exam Vital Signs: Vital Signs Temperature 97.1 F L 06/28/20 07:23 Pulse Rate 72 06/28/20 14:00 Respiratory Rate 17 06/28/20 14:00 Blood Pressure 92/56 L 06/28/20 14:00 O2 Sat by Pulse Oximetry (%) 99 06/28/20 14:30 Pertinent Admission Physical Exam Findings: Patient in rehab for one day and decided to leave. States "not ready". Leaving AMA, despite encouragement to stay. - Treatment Discharge Condition: Discharge condition good (Alert and oriented. Gait steady. No tremors. Lungs CTA. HR: RR. Abd soft and non-tender. BS+.) Hospital Course: On rehab 1 day only. - Medication Discharge Medications: Ambulatory Orders Amlodipine Besylate 5 mg PO DAILY 06/23/20 Hydrochlorothiazide 25 mg PO DAILY 06/23/20 Lisinopril 20 mg PO DAILY 06/25/20 Nicotine Polacrilex [Nicotine Gum] 2 mg BC Q2H 14 Days #90 gum 06/28/20 Nicotine [Nicotine Patch 14mg/24 hr] 1 each TD DAILY 14 Days #14 patch.td24 MDD 1 06/28/20 - Medication-Assisted Treatment (MAT) Medication-Assisted Treatment (MAT): No - Discharge Instructions Diet, activity, other medical instructions: Diet: Low sodium Activity: ad li Other medical instructions: Encouraged f/u w/ PCP for HTN control and NRT - Diagnosis (1) Alcohol use disorder, moderate, in early remission Status: Acute (2) Hypertension Status: Chronic Qualifiers: Hypertension type: unspecified Qualified Code(s): I10 - Essential (primary) hypertension (3) Cocaine use disorder Status: Chronic (4) Insomnia Status: Chronic Qualifiers: Insomnia type: unspecified Qualified Code(s): G47.00 - Insomnia, unspecified (5) Nicotine dependence Status: Chronic Qualifiers: Nicotine product type: cigarettes Substance use status: uncomplicated Qualified Code(s): F17.210 - Nicotine dependence, cigarettes, uncomplicated - Follow-up Referral Minutes to complete discharge: 30 - AMA Did Patient Leave Against Medical Advice: Yes Additional Comments: Left AMA despite encouragement to stay and risks of relapse.
--- NOTE | 2020-06-28 17:24 | PN ---
[facility] Progress Note Note: Patient states has to leave. Not ready. Patient was a transfer from detox yesterday for alcohol use disorder. Agreed to nicotine patch and gum. Vital Signs 06/28/20 06/28/20 14:00 14:30 Pulse Rate 72 Respiratory 17 Rate Blood Pressure 92/56 L O2 Sat by Pulse 99 Oximetry (%) Plan: Discussed treatment options but not interested. Agreed to nicotine patch and gum and sent to home pharmacy. Patient left AMA.
--- NOTE | 2020-06-30 08:15 | PN ---
Teaching Attending Note Name of Resident: Negro Gorman ATTENDING PHYSICIAN STATEMENT I saw and evaluated the patient. I reviewed the resident's note and discussed the case with the resident. I agree with the resident's findings and plan as documented. SUBJECTIVE: OBJECTIVE: ASSESSMENT AND PLAN: Agree with resident's findings and plan for rehab.
== END 2020-06-28 17:14 | disposition left against medical advice (07) | DRG 770 ==
LOC: YASAS 18:52 → Y3E 18:55
PROVIDERS: ADMIT Allergy & Immunology; ATTEND Allergy & Immunology
PROC: HZ42ZZZ Group Counseling for Substance Abuse Treatment, Cognitive-Behavioral (ICD-10-PCS; principal; 2020-06-27)
DX: F14.20 Cocaine dependence, uncomplicated (principal); F17.210 Nicotine dependence, cigarettes, uncomplicated; I10 Essential (primary) hypertension; G47.00 Insomnia, unspecified; F10.20 Alcohol dependence, uncomplicated; Z87.59 Personal history of other complications of pregnancy, childbirth and the puerperium; Z86.59 Personal history of other mental and behavioral disorders

== ENCOUNTER 2020-07-23 18:07 | Inpatient (IN) | payer OTHER ==
--- NOTE | 2020-07-23 21:25 | BHS.RME ---
Substance Use & Tx History - Substance Use History Alcohol Substance amount: 5 pints Vodka, 6 x 32oz. [place] beer Frequency of use: Daily Substance route: Oral Date of Last Use: 07/23/20 - Last Treatment Date of last treatment: 06/27/2019- 06/28/2020 - Left AMA Treatment type: Substance Use Disorder ([place]TT[place]) Where was last treatment: Detox Physical/Psych/Mental Status - Behavior General Behavior: Increased activity (restlessness, agitation) Eye Contact: Normal Other Behaviors: Mannerisms - Cooperativeness Cooperativeness: Cooperative - Thinking Thought Processes: Logical Thought content: Future oriented - Physical Health Problems Is patient presently having any pain?: No Does patient presently have any injuries (include location): No Does patient currently have a fever: No Is patient : No CIWA Nausea/Vomitin (vomiting x 3) Muscle Tremors: 4-Moderate,w/Arms Extend Anxiety: 4-Mod. Anxious/Guarded Agitation: 4-Moderately Restless Paroxysmal Sweats: 2 Orientation: 0-Oriented Tacttile Disturbances: 0-None Auditory Disturbances: 0-None Visual Disturbances: 0-None Headache: 3-Moderate CIWA-Ar Total Score: 20 Treatment Recommendation - Level of Care Level of Care: Opioid Treatment Program (OTP) (Alcohol detoxification)
--- NOTE | 2020-07-23 21:33 | HP ---
CIWA Score Nausea/Vomitin (vomiting x 3) Muscle Tremors: 4-Moderate,w/Arms Extend Anxiety: 4-Mod. Anxious/Guarded Agitation: 4-Moderately Restless Paroxysmal Sweats: 2 Orientation: 0-Oriented Tacttile Disturbances: 0-None Auditory Disturbances: 0-None Visual Disturbances: 0-None Headache: 3-Moderate CIWA-Ar Total Score: 20 - Admission Criteria OASAS Guidelines: Admission for Medically Managed Detox: Requires at least one of the followin. CIWA greater than 12 2. Seizures within the past 24 hours 3. Delirium tremens within the past 24 hours 4. Hallucinations within the past 24 hours 5. Acute intervention needed for co occurring medical disorder 6. Acute intervention needed for co occurring psychiatric disorder 7. Severe withdrawal that cannot be handled at a lower level of care (continued vomiting, continued diarrhea, abnormal vital signs) requiring intravenous medication and/or fluids 8. Admitting History and Physical - Past Medical History ...LMP: 06/23/20 - Smoking History Smoking history: Current every day smoker Aproximately how many cigarettes per day: 20 - Alcohol/Substance Use Hx Alcohol Use: Yes Admission ROS [facility] Chief Complaint: Seeking admission to detox Allergies/Adverse Reactions: Allergies Allergy/AdvReac Type Severity Reaction Status Date / Time No Known Allergies Allergy Verified 07/23/20 22:10 History of Present Illness: 40 years old female with a long history of alcohol dependence is seeking admission to detox. Her last admission was for the 06/23/2020 - 06/28/2020 but she left Rehab. AMA after a day. Patient promised to complete this admission and she was contracted. She reports that she drinks 5 pints Vodka and 6 x 32oz. [place] beer daily. She has medical history hypertension, psych. history of panic disorder, anxiety, depression, PTSD and she denies suicidal ideation at this time. She is unemployed, homeless and denies pending legal issues. 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, blackouts and alcohol related seizures (last was 3 months ago) Patient History - Patient Medical History Hx Anemia: No Hx Asthma: No Hx Chronic Obstructive Pulmonary Disease (COPD): No Hx Cancer: No Hx Cardiac Disorders: No Hx Congestive Heart Failure: No Hx Hypertension: Yes (Lisinopril, Amlodipine, HCTZ) Hx Hypercholesterolemia: No Hx Pacemaker: No HX Cerebrovascular Accident: No Hx Seizures: Yes (Alcohol related seizures) Hx Dementia: No Hx Diabetes: No Hx Gastrointestinal Disorders: No Hx Liver Disease: No Hx Genitourinary Disorders: No Hx Sexually Transmitted Disorders: No Hx Renal Disease (ESRD): No Hx Thyroid Disease: No Hx Human Immunodeficiency Virus (HIV): No (Negative 2020) Hx Hepatitis C: No Hx Depression: Yes (+ Anxiety) Hx Suicide Attempt: No (Denies suicidal ideation at this time) Hx Bipolar Disorder: No Hx Schizophrenia: No - Patient Surgical History Past Surgical History: Yes Hx Neurologic Surgery: No Hx Cataract Extraction: No Hx Cardiac Surgery: No Hx Lung Surgery: No Hx Breast Surgery: No Hx Breast Biopsy: No Hx Abdominal Surgery: Yes (2009) Hx Appendectomy: No Hx Cholecystectomy: No Hx Genitourinary Surgery: Yes Hx Section: No Hx Orthopedic Surgery: Yes (Left knee surgery 1999, right wrist 2008) Hx Hysterectomy: No Anesthesia Reaction: No - PPD History Previous Implant?: Yes Documented Results: Negative w/proof Implanted On Prior [facility] Admission?: Yes Date: 06/25/20 Results: 0MM PPD to be Administered?: No - Reproductive History Patient is a Female of Child Bearing Age (11 -55 yrs old): Yes Last Menstrual Period: 06/27/20 Patient : No - Smoking Cessation Smoking history: Current every day smoker Have you smoked in the past 12 months: Yes Aproximately how many cigarettes per day: 20 Hx Chewing Tobacco Use: No Initiated information on smoking cessation: Yes 'Breaking Loose' booklet given: 07/23/20 - Substance & Tx. History Hx Alcohol Use: Yes Hx Substance Use: No Substance Use Type: Alcohol Hx Substance Use Treatment: Yes ([facility]) - Substances abused Alcohol Substance route: Oral Frequency: Daily Amount used: 5 pints Vodka, 6 x 32oz. [place] beer Age of first use: 13 Date of last use: 07/23/20 Admission Physical Exam S - Physical General Appearance: Yes: Severe Distress, Tremorous, Irritable, Anxious HEENTM: Yes: Within Normal Limits Respiratory: Yes: Lungs Clear, Normal Breath Sounds, No Respiratory Distress Neck: Yes: Within Normal Limits Breast: Yes: Breast Exam Deferred Cardiology: Yes: Tachycardia Abdominal: Yes: Normal Bowel Sounds Genitourinary: Yes: Within Normal Limits Back: Yes: Normal Inspection Musculoskeletal: Yes: Back pain, Muscle Pain Extremities: Yes: Within Normal Limits, Tremors Neurological: Yes: Within Normal Limits Integumentary: Yes: Within Normal Limits Lymphatic: Yes: Within Normal Limits - Diagnostic (1) Depression Current Visit: Yes Status: Chronic Qualifiers: Depression Type: unspecified Qualified Code(s): F32.9 - Major depressive disorder, single episode, unspecified (2) Anxiety Current Visit: Yes Status: Chronic (3) Panic disorder Current Visit: Yes Status: Chronic (4) PTSD (post-traumatic stress disorder) Current Visit: Yes Status: Acute (5) Alcohol dependence with withdrawal Current Visit: Yes Status: Acute Qualifiers: Complication of substance-induced condition: uncomplicated Qualified Code(s): F10.230 - Alcohol dependence with withdrawal, uncomplicated (6) Hypertension Current Visit: Yes Status: Chronic Qualifiers: Hypertension type: essential hypertension Qualified Code(s): I10 - Essential (primary) hypertension (7) Nicotine dependence Current Visit: Yes Status: Chronic Qualifiers: Nicotine product type: cigarettes Substance use status: uncomplicated Qualified Code(s): F17.210 - Nicotine dependence, cigarettes, uncomplicated Cleared for Admission [facility] - Detox or Rehab [facility] Level of Care: Medically Managed Detox Regimen/Protocol: Librium Claeared for Rehab Admission: No Breathalyzer - Breathalyzer Breathalyzer: 0 Urine Drug Screen - Test Device Lot number: [id number] Expiration date: 01/15/22 - Control Is test valid?: Yes - Results Drug screen NEGATIVE: No Urine drug screen results: [facility]-Cocaine Inpatient Rehab Admission - Rehab Decision to Admit Inpatient rehab admission?: No
[2020-07-23 21:35] VITALS: BMI 23.3
[2020-07-23] MEDS ORDERED: BISMUTH SUBSALICYLATE 524 MG/30 ML UD PO PRN (21:54)
[2020-07-23] MEDS ORDERED: MENTHOL/PHENOL 1 EACH UD MM PRN (21:54)
[2020-07-23] MEDS ORDERED: IBUPROFEN 400 MG TABLET (FP) PO PRN (21:54)
[2020-07-23] MEDS ORDERED: MAGNESIUM CITRATE 300 ML BOTTLE PO PRN (21:54)
[2020-07-23] MEDS ORDERED: NICOTINE POLACRILEX 2 MG GUM BUC PRN (21:54)
[2020-07-23] MEDS ORDERED: MAGNESIUM HYDROX 2400MG/30ML ORAL SUSPENSION 30 ML CUP PO PRN (21:54)
[2020-07-23] MEDS ORDERED: chlordiazePOXIDE HCL 25 MG CAPSULE PO PRN (21:54)
[2020-07-23] MEDS ORDERED: ACETAMINOPHEN 325 MG TABLET (FP) PO PRN ×2 (21:54)
[2020-07-23] MEDS ORDERED: MAG HYDROX/AL HYDROX/SIMETH 30 ML UNIT-DOSE CUP PO PRN (21:54)
[2020-07-23] MEDS ORDERED: ONDANSETRON *ODT* 4 MG TABLET SL PRN (21:54)
--- OUTSIDE RECORDS SUMMARY | 2020-07-23 22:07 | XMS ---
:1980 Author Organization [facility] Care Team Providers Name Role Phone Rachael Cortez MD Unavailable Unavailable Re-disclosure Warning The records that you are about to access may contain information from federally- assisted alcohol or drug abuse programs. If such information is present, then the following federally mandated warning applies: This information has been disclosed to you from records protected by federal confidentiality rules (42 CFR part 2). The federal rules prohibit you from making any further disclosure of this information unless further disclosure is expressly permitted by the written consent of the person to whom it pertains or as otherwise permitted by 42 CFR part 2. A general authorization for the release of medical or other information is NOT sufficient for this purpose. The Federal rules restrict any use of the information to criminally investigate or prosecute any alcohol or drug abuse patient.The records that you are about to access may contain highly sensitive health information, the redisclosure of which is protected by Article 27-F of the [facility] Public Health law. If you continue you may haveaccess to information: Regarding HIV / AIDS; Provided by facilities licensed or operated by the [facility] Office of Mental Health; or Provided by the [facility] Office for People With Developmental Disabilities. If such information is present, then the following [facility] mandated warning applies: This information has been disclosed to you from confidential records which are protected by state law. State law prohibits you from making any further disclosure of this information without the specific written consent of the person to whom it pertains, or as otherwise permitted by law. Any unauthorized further disclosure in violation of state law may result in a fine or prison sentence or both. A general authorization for the release of medical or other information is NOT sufficient authorization for further disclosure. Allergies and Adverse Reactions Type Description Substance Reaction Status Data Source(s ) Drug allergy No Known Allergies No Known Allergies none [facility] Encounters Encounter Providers Location Date Indications Data Source(s ) Emergency Attender: Rachael 06/30/2019 [facility] Laura Cortez MD 01:18:00 AM [facility] EDT - 06/30/2019 07:14:00 AM EDT [facility] Patient discharged. Insurance Providers Payer name Policy type Policy ID Covered Covered alliance party's Policy P jazmyn / Coverage alliance party ID relationship to Olivier Inf ormation type olivier BEACON [id number] SP [id number] [employer] [id number] PT [id number] 000 HEALTH/PENDING SALE TO [facility] S MEDICAID [id number] PT [id number] Problems, Conditions, and Diagnoses Code Display Name Description Problem Type Effective Dates Data Source(s) F10.129 Alcohol abuse with F10.129 Diagnosis 06/30/2019 [place] intoxication, 02:26:00 AM EDT [facility] unspecified Results ID Date Data Source [id number] 06/23/2020 05:30:00 PM EDT [facility] Name Value Range Interpretation Description Data Sup porting Code Source(s) Document(s ) SARS [facility] coronavirus 2 RNA This lab was ordered by [facility] and reported by [facility]. Procedure Vital Signs ID Date Data Source UNK Name Value Range Interpretation Code Description Data Source(s) Diastolic blood 61 mm[Hg] 61 mm[Hg] [facility] pressure Hospital Systolic blood 104 mm[Hg] 104 mm[facility]Hg[facility] Respiratory rate 16 /min 16 /min [facility] Heart rate 85 /min 85 /min [facility] Body temperature 37.35615 37.76980 [facility] Body temperature 98.8 [degF] 98.8 [degF] [facility] Body mass index 23.0 kg/m2 23.0 kg/m2 [facility] ins (BMI) [Ratio] Hospital Body weight 135.28 135.28 [lb_av] [facility] ins [lb_av] [facility]
[2020-07-23] MEDS: hydrOXYzine PAMOATE 25 MG CAPSULE (FP) PO PRN (22:56)
[2020-07-23] MEDS: MELATONIN 5 MG TABLETS PO SCH (22:56)
[2020-07-23] MEDS: chlordiazePOXIDE HCL 25 MG CAPSULE PO SCH (22:56)
[2020-07-23] MEDS: THIAMINE HCL 100 MG TABLET (FP) PO SCH (22:59)
[2020-07-24] MEDS: chlordiazePOXIDE HCL 25 MG CAPSULE PO SCH ×4 (06:44→22:59)
[2020-07-24] MEDS: hydrOXYzine PAMOATE 25 MG CAPSULE (FP) PO PRN ×2 (06:44→10:22)
[2020-07-24 10:12] LABS: HEMATOCRIT 34.5 % (32.4-45.2); HEMOGLOBIN 11.6 GM/dL (10.7-15.3); MCH 33.4 pg (25.7-33.7); MCHC 33.6 g/dl (32.0-36.0); MEAN CELL VOLUME 99.4 fl (80-96); MEAN PLT VOLUME 7.5 fl (7.5-11.1); PLATELET COUNT 193 K/MM3 (134-434); RBC 3.47 M/mm3 (3.60-5.2); RDW 13.6 % (11.6-15.6); WHITE BLOOD COUNT 4.7 K/mm3 (4.0-10.0)
[2020-07-24] MEDS: PRENATAL VITAMINS W/ FOLIC ACID TABLET (FP) PO SCH (10:19)
[2020-07-24] MEDS: NICOTINE 21 MG/24 HOURS TOPICAL PATCH TD SCH (10:19)
[2020-07-24 10:27] LABS: POTASSIUM 3.6 mmol/L (3.5-5.1)
[2020-07-24 10:39] LABS: ALBUMIN 3.1 g/dl (3.4-5.0); BILIRUBIN,TOTAL 0.6 mg/dL (0.2-1); BLOOD UREA NITROGEN 9.2 mg/dL (7-18); CALCIUM 7.9 mg/dL (8.5-10.1); CREATININE 0.6 mg/dL (0.55-1.3); TOT PROT 6.4 g/dl (6.4-8.2)
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
--- NOTE | 2020-07-24 13:41 | PN ---
S CIWA - CIWA Score Nausea/Vomitin-No Nausea/No Vomiting Muscle Tremors: 4-Moderate,w/Arms Extend Anxiety: 3 Agitation: 3 Paroxysmal Sweats: 3 Orientation: 0-Oriented Tacttile Disturbances: 0-None Auditory Disturbances: 0-None Visual Disturbances: 0-None Headache: 0-None Present CIWA-Ar Total Score: 13 BHS Progress Note (SOAP) Subjective: sweats body aches agitation restless interrupted sleep irritable Objective: 07/24/20 14:49 Vital Signs Temperature 98 F 07/24/20 12:42 Pulse Rate 71 07/24/20 12:42 Respiratory Rate 16 07/24/20 12:42 Blood Pressure 137/77 07/24/20 12:42 O2 Sat by Pulse Oximetry (%) 100 07/24/20 12:42 Laboratory Tests 07/23/20 07/24/20 07/24/20 07:00 07:00 07:00 WBC 4.7 RBC 3.47 L Hgb 11.6 Hct 34.5 D MCV 99.4 H MCH 33.4 MCHC 33.6 RDW 13.6 Plt Count 193 D MPV 7.5 Sodium 139 Potassium 3.6 Chloride 106 Carbon Dioxide 27 Anion Gap 6 L BUN 9.2 Creatinine 0.6 Est GFR (CKD-EPI)AfAm 132.14 Est GFR (CKD-EPI)NonAf 114.01 Random Glucose 83 Calcium 7.9 L Total Bilirubin 0.6 AST 33 ALT 23 Alkaline Phosphatase 73 Total Protein 6.4 Albumin 3.1 L Syphilis Serology Non-reactive labs noted aaox3 lying in bed no acute distress Assessment: 07/24/20 14:49 withdrawals Plan: continue detox increase fluids
[2020-07-24] MEDS: GABAPENTIN 100 MG CAPSULE PO SCH ×2 (13:58→22:59)
[2020-07-24] MEDS: hydrOXYzine PAMOATE 50 MG CAPSULE (FP) PO PRN ×2 (17:42→23:00)
[2020-07-24] MEDS: MELATONIN 5 MG TABLETS PO SCH (23:00)
[2020-07-24] MEDS: THIAMINE HCL 100 MG TABLET (FP) PO SCH (23:00)
[2020-07-24] MEDS: METHOCARBAMOL 500 MG TABLET PO PRN (23:02)
[2020-07-25] MEDS: GABAPENTIN 100 MG CAPSULE PO SCH ×3 (06:10→22:12)
[2020-07-25] MEDS: chlordiazePOXIDE HCL 25 MG CAPSULE PO SCH ×4 (06:10→22:13)
[2020-07-25] MEDS: METHOCARBAMOL 500 MG TABLET PO PRN ×4 (06:12→23:31)
[2020-07-25] MEDS: hydrOXYzine PAMOATE 50 MG CAPSULE (FP) PO PRN ×4 (06:12→23:31)
[2020-07-25] MEDS: PRENATAL VITAMINS W/ FOLIC ACID TABLET (FP) PO SCH (10:44)
[2020-07-25] MEDS: amLODIPine BESYLATE 5 MG TABLET (FP) PO SCH (10:45)
[2020-07-25] MEDS: LISINOPRIL 20 MG TABLET PO SCH (10:45)
[2020-07-25] MEDS: hydrOXYzine PAMOATE 25 MG CAPSULE (FP) PO PRN (10:48)
[2020-07-25] MEDS: HYDROCHLOROTHIAZIDE 12.5 MG CAPSULE (FP) PO SCH (10:50)
[2020-07-25] MEDS: NICOTINE 21 MG/24 HOURS TOPICAL PATCH TD SCH (10:50)
--- NOTE | 2020-07-25 14:01 | PN ---
[facility] CIWA - CIWA Score Nausea/Vomitin-No Nausea/No Vomiting Muscle Tremors: 3 Anxiety: 2 Agitation: 3 Paroxysmal Sweats: 3 Orientation: 0-Oriented Tacttile Disturbances: 0-None Auditory Disturbances: 0-None Visual Disturbances: 0-None Headache: 0-None Present CIWA-Ar Total Score: 11 S Progress Note (SOAP) Subjective: interrupted sleep agitation sweats body aches i want my melatonin increased Objective: 07/25/20 14:00 Vital Signs Temperature 98.1 F 07/25/20 09:07 Pulse Rate 78 07/25/20 09:07 Respiratory Rate 18 07/25/20 09:07 Blood Pressure 123/69 07/25/20 09:07 O2 Sat by Pulse Oximetry (%) 100 07/25/20 06:08 Laboratory Tests 07/23/20 07/23/20 07/24/20 07:00 21:35 07:00 WBC 4.7 RBC 3.47 L Hgb 11.6 Hct 34.5 D MCV 99.4 H MCH 33.4 MCHC 33.6 RDW 13.6 Plt Count 193 D MPV 7.5 Sodium Potassium Chloride Carbon Dioxide Anion Gap BUN Creatinine Est GFR (CKD-EPI)AfAm Est GFR (CKD-EPI)NonAf Random Glucose Calcium Total Bilirubin AST ALT Alkaline Phosphatase Total Protein Albumin POC Urine HCG, Qual Negative Syphilis Serology Non-reactive 07/24/20 07:00 WBC RBC Hgb Hct MCV MCH MCHC RDW Plt Count MPV Sodium 139 Potassium 3.6 Chloride 106 Carbon Dioxide 27 Anion Gap 6 L BUN 9.2 Creatinine 0.6 Est GFR (CKD-EPI)AfAm 132.14 Est GFR (CKD-EPI)NonAf 114.01 Random Glucose 83 Calcium 7.9 L Total Bilirubin 0.6 AST 33 ALT 23 Alkaline Phosphatase 73 Total Protein 6.4 Albumin 3.1 L POC Urine HCG, Qual Syphilis Serology labs noted aaox3 ambulating no acute distress Assessment: 07/25/20 14:00 withdrawals sx Plan: continue detox increase fluids melatonin 10mg qhs.
[2020-07-25] MEDS: MELATONIN 5 MG TABLETS PO SCH (23:32)
[2020-07-25] MEDS: THIAMINE HCL 100 MG TABLET (FP) PO SCH (23:33)
[2020-07-26] MEDS ORDERED: chlordiazePOXIDE HCL 10 MG CAPSULE PO PRN
[2020-07-26] MEDS: GABAPENTIN 100 MG CAPSULE PO SCH ×3 (05:54→22:12)
[2020-07-26] MEDS: chlordiazePOXIDE HCL 10 MG CAPSULE PO SCH ×4 (05:54→22:12)
[2020-07-26] MEDS: amLODIPine BESYLATE 5 MG TABLET (FP) PO SCH (10:23)
[2020-07-26] MEDS: LISINOPRIL 20 MG TABLET PO SCH (10:23)
[2020-07-26] MEDS: NICOTINE 21 MG/24 HOURS TOPICAL PATCH TD SCH (10:24)
[2020-07-26] MEDS: HYDROCHLOROTHIAZIDE 12.5 MG CAPSULE (FP) PO SCH (10:24)
[2020-07-26] MEDS: PRENATAL VITAMINS W/ FOLIC ACID TABLET (FP) PO SCH (10:24)
[2020-07-26] MEDS: METHOCARBAMOL 500 MG TABLET PO PRN (10:27)
[2020-07-26] MEDS: CALCIUM 500MG/VIT-D 200 UNITS COMBO TABLET (FP) PO SCH ×2 (13:03→22:12)
[2020-07-26] MEDS: hydrOXYzine PAMOATE 50 MG CAPSULE (FP) PO PRN ×2 (13:04→22:12)
[2020-07-26] MEDS ORDERED: LIDOCAINE 5% TOPICAL PATCH TP ONE (16:13)
--- NOTE | 2020-07-26 16:19 | PN ---
[facility] CIWA - CIWA Score Nausea/Vomitin-No Nausea/No Vomiting Muscle Tremors: 2 Anxiety: 3 Agitation: 2 Paroxysmal Sweats: 1-Minimal Palms Moist Orientation: 0-Oriented Tacttile Disturbances: 0-None Auditory Disturbances: 0-None Visual Disturbances: 0-None Headache: 0-None Present CIWA-Ar Total Score: 8 BHS Progress Note (SOAP) Subjective: Restless, Sweating, Body Aches. Objective: Patient A & O X 3, Observed Ambulating on Detox Unit Unassisted. In No Acute Distress. 07/26/20 16:17 Vital Signs Temperature 97.5 F L 07/26/20 13:00 Pulse Rate 72 07/26/20 13:00 Respiratory Rate 17 07/26/20 13:00 Blood Pressure 113/82 07/26/20 13:00 O2 Sat by Pulse Oximetry (%) 100 07/26/20 13:00 Laboratory Tests 07/23/20 07/23/20 07/23/20 07:00 21:35 23:42 WBC RBC Hgb Hct MCV MCH MCHC RDW Plt Count MPV Sodium Potassium Chloride Carbon Dioxide Anion Gap BUN Creatinine Est GFR (CKD-EPI)AfAm Est GFR (CKD-EPI)NonAf Random Glucose Calcium Total Bilirubin AST ALT Alkaline Phosphatase Total Protein Albumin POC Urine HCG, Qual Negative Syphilis Serology Non-reactive COVID-19 (MYKE) Not detected 07/24/20 07/24/20 07:00 07:00 WBC 4.7 RBC 3.47 L Hgb 11.6 Hct 34.5 D MCV 99.4 H MCH 33.4 MCHC 33.6 RDW 13.6 Plt Count 193 D MPV 7.5 Sodium 139 Potassium 3.6 Chloride 106 Carbon Dioxide 27 Anion Gap 6 L BUN 9.2 Creatinine 0.6 Est GFR (CKD-EPI)AfAm 132.14 Est GFR (CKD-EPI)NonAf 114.01 Random Glucose 83 Calcium 7.9 L Total Bilirubin 0.6 AST 33 ALT 23 Alkaline Phosphatase 73 Total Protein 6.4 Albumin 3.1 L POC Urine HCG, Qual Syphilis Serology COVID-19 (MYKE) Lab Results noted. Assessment: 07/26/20 16:17 WITHDRAWAL SYMPTOMS. HYPOCALCEMIA. Plan: Continue Detox. Os-Blake, 500 mg BID orally for low Ca level noted on Detox Admission Laboratory Assessment. Lidoderm Patch for lower back ache. Patient scheduled for D/C from detox unit tomorrow pending pre-discharge medical evaluation by covering medical provider.
[2020-07-26] MEDS: CYCLOBENZAPRINE HCL 10 MG TABLET (FP) PO PRN (22:11)
[2020-07-26] MEDS: MELATONIN 5 MG TABLETS PO SCH (22:12)
[2020-07-26] MEDS: THIAMINE HCL 100 MG TABLET (FP) PO SCH (22:12)
[2020-07-26] MEDS: LIDOCAINE PATCH REMOVAL MC SCH (23:13)
[2020-07-27] MEDS: chlordiazePOXIDE HCL 10 MG CAPSULE PO SCH ×2 (05:49→17:36)
[2020-07-27] MEDS: GABAPENTIN 100 MG CAPSULE PO SCH (05:49)
--- NOTE | 2020-07-27 09:51 | PN ---
[facility] Progress Note Note: Patient reports experiencing severe anxiety as well as sleeping poorly despite taking Gabapentin 100 mg/tid and Melatonin 5 mg/hs prn. Requests to be ordered Belsomra as well as increase Gabapentin dose. Will increase Gabapentin dose to 300 mg/tid and subtitute Belsomra 10 mg/hs prn for Melatonin 5 mg/hs prn
[2020-07-27] MEDS: HYDROCHLOROTHIAZIDE 12.5 MG CAPSULE (FP) PO SCH (10:05)
[2020-07-27] MEDS: CALCIUM 500MG/VIT-D 200 UNITS COMBO TABLET (FP) PO SCH ×2 (10:05→22:03)
[2020-07-27] MEDS: amLODIPine BESYLATE 5 MG TABLET (FP) PO SCH (10:05)
[2020-07-27] MEDS: LISINOPRIL 20 MG TABLET PO SCH (10:05)
[2020-07-27] MEDS: NICOTINE 21 MG/24 HOURS TOPICAL PATCH TD SCH (10:05)
[2020-07-27] MEDS: PRENATAL VITAMINS W/ FOLIC ACID TABLET (FP) PO SCH (10:05)
[2020-07-27] MEDS: hydrOXYzine PAMOATE 50 MG CAPSULE (FP) PO PRN ×2 (10:07→22:02)
[2020-07-27] MEDS: CYCLOBENZAPRINE HCL 10 MG TABLET (FP) PO PRN ×2 (13:13→22:02)
[2020-07-27] MEDS: GABAPENTIN 300 MG CAPSULE PO SCH ×2 (13:13→22:02)
--- NOTE | 2020-07-27 13:16 | PN ---
[facility] CIWA - CIWA Score Nausea/Vomitin-No Nausea/No Vomiting Muscle Tremors: None Anxiety: 2 Agitation: 0-Normal Activity Paroxysmal Sweats: 1-Minimal Palms Moist Orientation: 0-Oriented Tacttile Disturbances: 0-None Auditory Disturbances: 0-None Visual Disturbances: 0-None Headache: 0-None Present CIWA-Ar Total Score: 3 BHS Progress Note (SOAP) Subjective: Complaints of mild anxiety anxiety and sweats. Objective: 07/27/20 13:14 Alert and oriented x3, in no acute respiratory distress. Full ROM, ambulating in unit without any assistance. Skin warm to touch without lesions. Vital Signs 07/27/20 07/27/20 06:31 09:20 Temperature 97.0 F L 98.8 F Pulse Rate 62 93 H Respiratory 20 18 Rate Blood Pressure 121/77 102/69 O2 Sat by Pulse 100 100 Oximetry (%) Laboratory Last Values WBC 4.7 K/mm3 (4.0-10.0) 07/24/20 07:00 RBC 3.47 M/mm3 (3.60-5.2) L 07/24/20 07:00 Hgb 11.6 GM/dL (10.7-15.3) 07/24/20 07:00 Hct 34.5 % (32.4-45.2) D 07/24/20 07:00 MCV 99.4 fl (80-96) H 07/24/20 07:00 MCH 33.4 pg (25.7-33.7) 07/24/20 07:00 MCHC 33.6 g/dl (32.0-36.0) 07/24/20 07:00 RDW 13.6 % (11.6-15.6) 07/24/20 07:00 Plt Count 193 K/MM3 (134-434) D 07/24/20 07:00 MPV 7.5 fl (7.5-11.1) 07/24/20 07:00 Sodium 139 mmol/L (136-145) 07/24/20 07:00 Potassium 3.6 mmol/L (3.5-5.1) 07/24/20 07:00 Chloride 106 mmol/L (98-107) 07/24/20 07:00 Carbon Dioxide 27 mmol/L (21-32) 07/24/20 07:00 Anion Gap 6 MMOL/L (8-16) L 07/24/20 07:00 BUN 9.2 mg/dL (7-18) 07/24/20 07:00 Creatinine 0.6 mg/dL (0.55-1.3) 07/24/20 07:00 Est GFR (CKD-EPI)AfAm 132.14 07/24/20 07:00 Est GFR (CKD-EPI)NonAf 114.01 07/24/20 07:00 Random Glucose 83 mg/dL (74-106) 07/24/20 07:00 Calcium 7.9 mg/dL (8.5-10.1) L 07/24/20 07:00 Total Bilirubin 0.6 mg/dL (0.2-1) 07/24/20 07:00 AST 33 U/L (15-37) 07/24/20 07:00 ALT 23 U/L (13-61) 07/24/20 07:00 Alkaline Phosphatase 73 U/L (45-117) 07/24/20 07:00 Total Protein 6.4 g/dl (6.4-8.2) 07/24/20 07:00 Albumin 3.1 g/dl (3.4-5.0) L 07/24/20 07:00 POC Urine HCG, Qual Negative 07/23/20 21:35 Syphilis Serology Non-reactive (NONREACTIVE) 07/23/20 07:00 COVID-19 (MYKE) Not detected (Not Detected) 07/23/20 23:42 Labs noted. Assessment: 07/27/20 13:15 Withdrawal symptoms. Plan: Continue detox protocol. D/C in AM.
[2020-07-27] MEDS ORDERED: SUVOREXANT 10 MG TABLET PO PRN (22:00)
[2020-07-27] MEDS: THIAMINE HCL 100 MG TABLET (FP) PO SCH (22:02)
[2020-07-27] MEDS: LIDOCAINE PATCH REMOVAL MC SCH (22:03)
[2020-07-28] MEDS ORDERED: chlordiazePOXIDE HCL 10 MG CAPSULE PO ONE (05:00)
[2020-07-28] MEDS: GABAPENTIN 300 MG CAPSULE PO SCH ×2 (05:26→13:05)
[2020-07-28 09:53] VITALS: BP 110/70; PULSE 72; TEMP 97.9
[2020-07-28] MEDS: HYDROCHLOROTHIAZIDE 12.5 MG CAPSULE (FP) PO SCH (10:22)
[2020-07-28] MEDS: LISINOPRIL 20 MG TABLET PO SCH (10:22)
[2020-07-28] MEDS: amLODIPine BESYLATE 5 MG TABLET (FP) PO SCH (10:22)
[2020-07-28] MEDS: CALCIUM 500MG/VIT-D 200 UNITS COMBO TABLET (FP) PO SCH (10:22)
[2020-07-28] MEDS: NICOTINE 21 MG/24 HOURS TOPICAL PATCH TD SCH (10:22)
[2020-07-28] MEDS: PRENATAL VITAMINS W/ FOLIC ACID TABLET (FP) PO SCH (10:22)
[2020-07-28] MEDS: hydrOXYzine PAMOATE 50 MG CAPSULE (FP) PO PRN (10:23)
[2020-07-28] MEDS: CYCLOBENZAPRINE HCL 10 MG TABLET (FP) PO PRN (10:23)
--- NOTE | 2020-07-28 13:11 | DS ---
[facility] Detox Discharge Summary Admission Date: 07/23/20 Discharge Date: 07/28/20 - History Present History: Alcohol Dependence, Cocaine Dependence - Physical Exam Results Vital Signs: Vital Signs Temperature 97.9 F 07/28/20 08:35 Pulse Rate 72 07/28/20 08:35 Respiratory Rate 16 07/28/20 08:35 Blood Pressure 110/70 07/28/20 08:35 O2 Sat by Pulse Oximetry (%) 98 07/28/20 08:35 Pertinent Admission Physical Exam Findings: Vital Signs Temperature 97.9 F 07/28/20 08:35 Pulse Rate 72 07/28/20 08:35 Respiratory Rate 16 07/28/20 08:35 Blood Pressure 110/70 07/28/20 08:35 O2 Sat by Pulse Oximetry (%) 98 07/28/20 08:35 Laboratory Tests 07/23/20 07/23/20 07/23/20 07:00 21:35 23:42 WBC RBC Hgb Hct MCV MCH MCHC RDW Plt Count MPV Sodium Potassium Chloride Carbon Dioxide Anion Gap BUN Creatinine Est GFR (CKD-EPI)AfAm Est GFR (CKD-EPI)NonAf Random Glucose Calcium Total Bilirubin AST ALT Alkaline Phosphatase Total Protein Albumin POC Urine HCG, Qual Negative Syphilis Serology Non-reactive COVID-19 (MYKE) Not detected 07/24/20 07/24/20 07:00 07:00 WBC 4.7 RBC 3.47 L Hgb 11.6 Hct 34.5 D MCV 99.4 H MCH 33.4 MCHC 33.6 RDW 13.6 Plt Count 193 D MPV 7.5 Sodium 139 Potassium 3.6 Chloride 106 Carbon Dioxide 27 Anion Gap 6 L BUN 9.2 Creatinine 0.6 Est GFR (CKD-EPI)AfAm 132.14 Est GFR (CKD-EPI)NonAf 114.01 Random Glucose 83 Calcium 7.9 L Total Bilirubin 0.6 AST 33 ALT 23 Alkaline Phosphatase 73 Total Protein 6.4 Albumin 3.1 L POC Urine HCG, Qual Syphilis Serology COVID-19 (MYKE) aaox3 ambulating no acute distress lungs CTA - Treatment Hospital Course: Detox Protocol Followed, Detoxed Safely, Responded well, Discharged Condition Good, Rehab Referral Accepted - Medication Discharge Medications: Ambulatory Orders Amlodipine Besylate 5 mg PO DAILY 06/23/20 Hydrochlorothiazide 25 mg PO DAILY 06/23/20 Lisinopril 30 mg PO DAILY 06/25/20 Nicotine Polacrilex [Nicotine Gum] 2 mg BC Q2H 14 Days #90 gum 06/28/20 Nicotine [Nicotine Patch 14mg/24 hr] 1 each TD DAILY 14 Days #14 patch.[id number] MDD 1 06/28/20 - Diagnosis (1) Alcohol dependence with withdrawal Status: Chronic Qualifiers: Complication of substance-induced condition: uncomplicated Qualified Code(s): F10.230 - Alcohol dependence with withdrawal, uncomplicated (2) Alcohol use disorder, moderate, in early remission Status: Acute (3) Alcohol-induced mood disorder Status: Acute (4) Alcohol-induced sleep disorder Status: Acute (5) Anxiety Status: Chronic (6) Depression Status: Chronic Qualifiers: Depression Type: unspecified Qualified Code(s): F32.9 - Major depressive disorder, single episode, unspecified (7) Hypertension Status: Chronic Qualifiers: Hypertension type: essential hypertension Qualified Code(s): I10 - Essential (primary) hypertension (8) Insomnia Status: Chronic Qualifiers: Insomnia type: unspecified Qualified Code(s): G47.00 - Insomnia, unspecified (9) MDD (major depressive disorder) Status: Chronic (10) Nicotine dependence Status: Chronic Qualifiers: Nicotine product type: cigarettes Substance use status: uncomplicated Qualified Code(s): F17.210 - Nicotine dependence, cigarettes, uncomplicated (11) PTSD (post-traumatic stress disorder) Status: Chronic (12) Panic disorder Status: Chronic (13) Substance induced mood disorder Status: Chronic (14) Alcohol related seizure Status: Resolved - AMA Did Patient Leave Against Medical Advice: No
== END 2020-07-28 13:12 | disposition other institution (70) | DRG 775 ==
LOC: YASAS 18:07 → Y6N 22:03
PROVIDERS: ADMIT Allergy & Immunology; ATTEND Allergy & Immunology
PROC: HZ2ZZZZ Detoxification Services for Substance Abuse Treatment (ICD-10-PCS; principal; 2020-07-23)
DX: F10.230 Alcohol dependence with withdrawal, uncomplicated (principal); F17.210 Nicotine dependence, cigarettes, uncomplicated; F10.24 Alcohol dependence with alcohol-induced mood disorder; F19.24 Other psychoactive substance dependence with psychoactive substance-induced mood disorder; F10.282 Alcohol dependence with alcohol-induced sleep disorder; F41.0 Panic disorder [episodic paroxysmal anxiety]; F41.1 Generalized anxiety disorder; F32.9 Major depressive disorder, single episode, unspecified; F43.10 Post-traumatic stress disorder, unspecified; E83.51 Hypocalcemia; I10 Essential (primary) hypertension; G47.00 Insomnia, unspecified; Z62.810 Personal history of physical and sexual abuse in childhood; Z91.410 Personal history of adult physical and sexual abuse; Z86.69 Personal history of other diseases of the nervous system and sense organs; Z56.0 Unemployment, unspecified; Z59.0 Homelessness; Z98.51 Tubal ligation status; Z98.890 Other specified postprocedural states
CPT/HCPCS: 36415; 80053; 81025; 85027; 86780; C9803; U0003